=== PATIENT | male | born 1995 | race Caucasian/White ===

== ENCOUNTER 2020-03-19 18:45 | Emergency (ER) | payer OTHER, SELFPAY ==
[2020-03-08 08:10] VITALS: BMI 25.1
[2020-03-19] VITALS (10 sets, daily range): BP systolic 136–146; BP diastolic 97–101; PULSE 111–133; RESP 14–29; TEMP 36.4; O2SAT 92–94; BMI 23.3
--- NOTE | 2020-03-19 18:59 | ED.VIS.GEN ---
History of Present Illness Chief Complaint: Shortness of Breath Informant: Patient Narrative: 24-year-old male with a history of asthma states that since he woke up this morning has been feeling short of breath. He has been using his ProAir inhaler throughout the day. However over the past hour he is gotten significantly more short of breath. He states that it is very difficult for him to take a inhalation. He denies any fevers, rhinorrhea, diarrhea, rashes. Past Medical History - Allergies and Home Meds Allergies/Adverse Reactions: Allergies No Known Allergies Allergy (Verified 03/19/20 18:46) Primary Care Physician: Liliam Clements MD [Primary Care Provider] - 1 Week Past Medical History: - - Asthma Surgical History: noncontributory Smoking Status: Current every day smoker Drugs: None Review of Systems General: Denies: Chills, Fever, Sweats Eyes: Denies: Visual changes - bilaterally, Diplopia ENT: Denies: Rhinorrhea, Sore throat Cardiovascular: Denies: Chest pain, Palpitations Respiratory: Reports: Dyspnea, Dyspnea on exertion. Denies: Cough Gastrointestinal: Denies: Abdominal pain, Nausea, Vomiting, Diarrhea, Melena, Hematochezia Genitourinary: Denies: Dysuria, Hematuria, Frequency Musculoskeletal: Denies: Back pain, Extremity Pain Skin: Denies: Rash, Wounds Neurological: Denies: Headache, Weakness, Numbness Physical Exam Vital Signs/Narrative: Vital Signs Temp Pulse Resp BP Pulse Ox 03/19/20 18:46 97.5 F L 113 H 29 H 146/101 H 94 Inital Vital Signs reviewed: Yes General: Well nourished, Well developed, No Acute Distress Head: Normocephalic, Atraumatic Eyes: Perrl, EOMI ENT: Moist mucous membranes, No rhinorrhea Neck: Supple, Nontender Cardiovascular: Regular rate, No murmurs, Tachycardia Respiratory: Chest nontender, Wheezing - Inspiratory and expiratory, - - Conversational dyspnea unable to speak in full sentences Abdomen: Soft, Nontender, Nondistended, Normal bowel sounds Back: Nontender, Normal Inspection Extremities: Nontender, No edema Skin: Normal color, No rash Neurological: Alert, Oriented x3, Cranial nerves II-XII grossly intact, Normal Strength, Normal Sensation Psychological: Normal affect, Normal Mood Diagnostic/Tx/Re-eval Clinical Impression(s) from Imaging Studies Chest X-Ray 03/19/20 20:25 IMPRESSION: Normal x-ray examination of the chest. Electronically Signed: Jorge Pardo DO at 21:00 EST Tel [phone], Service support , - Medical Decision Making My interpretation of the two view portable chest radiograph was no acute process. Radiology agrees. Covid antigen testing was negative. Patient received a DuoNeb and 2 albuterol aerosols and prednisone 60 mg. Repeat lung auscultation shows no more inspiratory wheezing but he still does have some expiratory wheezing. He is moving better air. He however states he does not symptomatically feel better. Patient's pulse ox is 93 to 95% at rest. Ambulating he is 93%. I gave him a second DuoNeb. Peak flows were obtained. He was having difficulty getting the first couple seconds of his expiratory breath into the peak flow meter despite numerous efforts. At this point he is sitting up in the bed eating he appears significantly more comfortable. His lung sounds are greatly improved. On the right and for new albuterol MDI with a spacer and burst prednisone. Return if worsening or concerns ED Disposition - Plan for ED Patient: Disposition: Home or Assisted Living Diagnosis: Asthma exacerbation Instructions: ED Asthma, Acute (Adult) Prescriptions: Prednisone [Deltasone] 60 mg PO DAILY #15 tab Prescription Printed Albuterol Inhaler [Ventolin Hfa] 2 puff INHALATION Q2H PRN PRN #1 inhaler PRN Reason: Wheezing Prescription Printed Referrals: Liliam Clements MD [Primary Care Provider] - 1 Week
[2020-03-19] MEDS: Ipratropium/Albuterol Sulfate 3 ML AMPUL.NEB INHALATION ×2 (19:09→21:05)
[2020-03-19] MEDS: Albuterol 2.5 MG/3 ML VIAL.NEB. INHALATION ×3 (19:10→19:30)
[2020-03-19] MEDS: predniSONE 20 MG Tablet 60 MG PO (19:11)
--- NOTE | 2020-03-19 20:25 | RAD_ITS ---
STUDY: X-RAY CHEST REASON FOR EXAM: Male, 24 years old. Shortness of breath. Wheezing. Asthma. TECHNIQUE: Single AP portable view of the chest. COMPARISON: None. FINDINGS: The lungs are clear and expanded. There is no demonstrated pleural abnormality. Normal size heart. Normal mediastinum and art. Normal visualized pulmonary arteries. Normal visualized aortic arch and descending thoracic aorta. Normal visualized thoracic spine. Normal visualized ribs, clavicles, and shoulders. There is no demonstrated abnormality of the visualized soft tissue structures of the upper abdomen. RAD/Chest 1 View (Portable) IMPRESSION: Normal x-ray examination of the chest. Electronically Signed: Jorge Pardo DO at 21:00 EST Tel [phone], Service support ,
[2020-03-19] MEDS: INHALER, ASSIST DEVICES 1 EACH SPACER INHALATION (21:34)
== END 2020-03-19 21:41 | disposition home or self-care (01) ==
PROVIDERS: Emergency Provider Emergency Medicine; PCP Internal Medicine
DX: J45.901 Unspecified asthma with (acute) exacerbation (principal); F17.200 Nicotine dependence, unspecified, uncomplicated
CPT/HCPCS: 71045; 87426; 94640; 99251; 99284; A4216; G0463

== ENCOUNTER → 2022-05-09 | Outpatient (CLI) | payer OTHER, SELFPAY ==
[2022-05-09 10:50] LABS: Absolute Neutrophil Count 4.5 X10^3/uL (2.0-7.7); Basophil# 0.05 X10^3/uL; Basophil% 0.7 % (0-1); Eosinophil# 0.85 X10^3/uL; Eosinophils% 11.1 % (0-5); Hematocrit 37.6 % (40-54); Hemoglobin 11.9 g/dL (13.0-16.5); Mean Corp Hgb Conc 31.6 g/dL (32-36); Mean Corpuscular Hgb 26.1 pg (27.0-32.0); Mean Corpuscular Volume 82.5 fL (80-94); Mean Platelet Vol. 9.4 fl (6.2-12.0); Monocyte% 7.9 % (0-10); NRBC Flagged by Analyzer 0 % (0-5); Neutrophil # 4.51 X10^3/uL (2.7-7.7); Platelet Count 382 K/mm3 (150-450); RBC Distribution Width CV 13.6 % (11.6-14.6); RBC Distribution Width SD 40.3 fl (35.1-43.9); Red Blood Count 4.56 M/mm3 (4.6-6.2); White Blood Count 7.6 K/mm3 (4.4-11.0)
[2022-05-09 11:20] LABS: Vitamin D,25 Hydroxy 27.4 ng/mL
[2022-05-09 11:28] LABS: ALB/GLOB Ratio 1.2 RATIO (0.9-2.4); AST(SGOT) 31 U/L (15-37); Alanine Aminotransfer ALT/SGPT 37 U/L (16-61); Albumin, Serum 4.2 g/dL (3.2-5.0); Alkaline Phosphatase 87 U/L (45-117); Anion Gap 5 (5-15); BUN 12 mg/dL (7-18); BUN/Creat Ratio 13.5 RATIO (10-20); Calcium,Total 9.2 mg/dL (8.5-10.1); Chloride 106 mmol/L (98-107); Cholesterol 128 mg/dL (200); Creatinine, Serum 0.89 mg/dL (0.70-1.30); EST Glomerular Filtration Rate 108 mL/min (>60); Est Glom Filt Rate - Afr Amer 131 mL/min (>60); Globulin 3.5 g/dL (2.2-4.2); Glucose 97 mg/dL (74-106); High Density Lipoprotein 38 mg/dL; Potassium 3.8 mmol/L (3.5-5.1); Protein, Total 7.7 g/dL (6.4-8.2); Sodium Level 141 mmol/L (136-145); Triglycerides 53 mg/dL; Very Low Density Lipoprotein 11 mg/dL (5-40)
[2022-05-09 13:43] LABS: Iron 29 ug/dL (65-175); Iron Binding Capacity,Total 471 ug/dL (250-450); PERCENT IRON SATURATION 6.2 % (15.0-55.0)
[2022-05-09 14:28] LABS: Vitamin B12 801 pg/mL (211-911)
== END | disposition home or self-care (01) ==
LOC: LAB 09:51
PROVIDERS: PCP Internal Medicine
DX: Z00.00 Encounter for general adult medical examination without abnormal findings (principal); E55.9 Vitamin D deficiency, unspecified; N18.9 Chronic kidney disease, unspecified; D64.9 Anemia, unspecified; Z13.220 Encounter for screening for lipoid disorders
CPT/HCPCS: 36415; 80053; 80061; 82306; 82607; 82746; 83540; 83550; 85025

== ENCOUNTER → 2022-05-11 | Outpatient (CLI) | payer OTHER, SELFPAY ==
[2022-05-11 14:43] LABS: Bacteria 0 SEEN /hpf (None Seen); Mucous, Urine 0 SEEN /hpf (<or=2+); Red Blood Cells-Urine 0 SEEN /hpf (0-5); Squamous Epithelial Cells - UA 0 SEEN /hpf (0-5); White Blood Cells 0 SEEN /hpf (0-5)
[2022-05-11 14:52] LABS: Color, Urine Yellow (Yellow); Glucose, Dipstick Normal (Normal); Ketone-Dipstick 5 mg/dl (Negative); Leukocyte Esterase-Dipstick 25 /ul (Negative); Nitrite-Dipstick Negative (Negative); Occult Blood-Urine Negative /ul (Negative); Protein-Dipstick 30 mg/dl (Negative); Urine Bilirubin Dipstick Negative (Negative); Urine Clarity Clear (Clear); Urine Urobilinogen 1 mg/dl (Normal)
== END | disposition home or self-care (01) ==
LOC: LABSPEC 14:40
PROVIDERS: PCP Internal Medicine; Referring Provider Internal Medicine; Visit Provider Internal Medicine
DX: D64.9 Anemia, unspecified (principal)
CPT/HCPCS: 81001

== ENCOUNTER → 2022-05-14 | Outpatient (CLI) | payer OTHER, SELFPAY | END | disposition home or self-care (01) | LOC: LABSPEC 08:58 | PROVIDERS: PCP Internal Medicine; Referring Provider Internal Medicine; Visit Provider Internal Medicine | DX: D64.9 Anemia, unspecified (principal) | CPT/HCPCS: 82274 ==

== ENCOUNTER 2022-08-16 07:39 | Day surgery (SDC) | payer OTHER, SELFPAY ==
[2022-08-16] VITALS (7 sets, daily range): BP systolic 91–123; BP diastolic 56–85; PULSE 59–83; RESP 16–18; TEMP 36.3–36.6; O2SAT 97–100; BMI 23.9
--- NOTE | 2022-08-16 08:14 | HP.PCM_ITS ---
History and Physical Date of Admission: 08/16/22 Visit Reasons:?Anemia/C-Scope Consult Chief Complaint: anemia/c-scope consult Is patient in pain?: No Allergies No Known Allergies Allergy (Verified 06/03/22 08:47) Medications albuterol sulfate 90 mcg/actuation aerosol inhaler 2 puff inhalation Q2H PRN PRN Wheezing ##1 03/19/20 [Rx Confirmed 06/03/22] albuterol sulfate 90 mcg/actuation aerosol inhaler 2 puff inhalation Q6H PRN shortness of breath or wheezing #18 grams 05/09/22 [Rx Confirmed 06/03/22] fluticasone propionate 115 mcg-salmeterol 21 mcg/actuation HFA inhaler 2 puff inhalation BID #12 grams 05/09/22 [Rx Confirmed 06/03/22] ferrous sulfate 325 mg (65 mg iron) tablet 325 mg PO BID #60 tabs 05/14/22 [Rx Confirmed 06/03/22] PFSH Medical History? Asthma Surgical History? right finger surgery Family History? Grandfather Myocardial infarction ?? ? age 47 Social History? Smoking Status:? Current every day smoker Smokeless tobacco user:? chewing tobacco and other alcohol intake:? current substance use type:? does not use HPI HPI HPI: 26-year-old gentleman is being referred by Dr. Liliam Clements for surgical consultation regarding chronic anemia.? A written compromise surgical consult recommendations will return to him.? The patient was most recently seen on May 22, [address] Liliam Clements.? On reviewing the medications at that time it includes newly started iron sulfate.? The patient had a history of 2016 with an episode of severe colitis.? He is noted to have a mild anemia at that time.? By report stool Hemoccult at that time was negative x2.? The patient has not noted any bright red blood per rectum or melena. As of May 09, 2022 white blood cell count 7.6 with a hemoglobin 11.9 and hematocrit of 37.6 with a platelet count of 382,000.? MCV is normal at 82.5 with an MCH of 26.1 slightly low and MCHC 31.6 slightly low.? BUN is 12 and creatinine 0.89. Patient is a driver education instructor.? Typical day can be at least 9-1/2 hours.? His diet is variable.? He will have a good meal in the evening.? He states his weight with weights been stable.? He occasionally will have some constipation.? There is no family history of colon cancer he states both of his parents are very healthy.? States that his sister couple years ago however was diagnosed with what he thinks is ulcerative colitis.? He thinks he is she is on medication but she has not required any surgery. 5 years ago he had significant problems with reflux disease.? He was chewing tobacco at that time.? He has since given that up.? Although we still have heartburn and reflux symptoms he is no longer on omeprazole therapy. He has been recently placed on iron therapy as replacement. It is not clear whether this could be simply a nutritional issue not getting enough iron in combination with his vigorous physical and long hours at work. He is currently denying any abdominal pain. 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 This can sometimes cause discomfort throughout the day particularly during the morning hours. ROS General General: No weight change, appetite, fatigue, colon cancer, breast cancer or weakness HEENT HEENT: No difficulty swallowing, eye injury, eye surgery, swollen glands or hoarseness Endo Endocrine: No thyroid disease, diabetes mellitus, thyroid cancer, Hair loss, heat intolerance or cold intolerance Skin Skin: No rash or changing moles Musc Musculoskeletal: No back problems, arthritis, rheumatoid arthritis, gout or joint pain Cardio Cardiovascular: No murmur, pacemaker, heart disease, atrial fibrillation, high blood pressure, heart attack, heart stent, palpitations, shortness of breat with exertion or chest pain Psych Psychiatric: No depression, anxiety or hearing voices Resp Respiratory: No shortness of breath, No sleep apnea, No cough, No COPD, Yes asthma, No emphysema and No wheezing Gastro Gastrointestinal: No abdominal pain, No nausea or vomiting, Yes diarrhea, Yes constipation, Yes blood in stool, Yes acid reflux, No hemorrhoids, No ulcers, No gallbladder problem and No black,tarry stools Sam Hematologic: No blood thinners, No blood disorders, No bleeding, No anemia and No blood clots Neuro Neurologic: No system reviewed and no additional complaints, except as documented, No as per HPI, No abnormal gait, No abnormal hearing, No abnormal movements, No abnormal speech, No behavioral changes, No burning sensations, No confusion, No convulsions, No disequilibrium, No dizziness, No localized weakness, No frequent falls, No headache(s), No lack of coordination, No loss of vision, No memory loss, No numbness, No other visual disturbances, No radicular pain, No restless legs, No sensory deficit, No syncope, No tingling, No tremor(s), No weakness and No other Exam Const General: cooperative, healthy appearing, comfortable and no acute distress Nutritional Appearance: average body habitus Orientation: alert and awake [facility] Head: normal to inspection Eyes General: appearance normal, both eyes and all related structures Neck Neck: normal visual inspection Chest Chest palpation & inspection: normal inspection of the chest Resp Effort & Inspection: normal respiratory effort Auscultation: clear to auscultation bilaterally Cardio Rate: regular rate Rhythm: regular rhythm GI Inspection: normal to inspection Skin General: no rashes or lesions noted Neuro General: patient alert, patient awake and patient oriented x3 Cognition: normal cognition Extrem General: normal to inspection Psych Appearance: grossly normal Assessment and Plan Assessment and Plan (1) Anemia: ?Status:?Acute ?Plan: I recommended the patient a combined esophagogastroduodenoscopy with possible biopsy and colonoscopy with possible biopsy or polypectomy as indicated.? He is aware of the technique, benefit, risk, alternatives.? Inspected for potential source of blood loss.? I would do my best to try to inspect the terminal ileum as well.? The patient does have reflux symptoms and a history of the same.? He has a family history suggesting his sister with ulcerative colitis.? No family history that he is aware of of colon cancer.? No previous upper and lower endoscopy. He has had an opportunity ask and have questions answered.? He is not interested in missing any more work than he has to.? With that in mind we may provide a 1 day clear liquid and a GoLytely prep. I very much appreciate the kind option of assisting with the surgical care Copy: Dr. Liliam Muller M.D., F.A.C.S. No new changes since his previous office appointment. Arturo Muller M.D., F.A.C.S.
[2022-08-16] MEDS: Lactated Ringers 1,000 ML 15 ML IV (08:16)
--- NOTE | 2022-08-16 08:45 | EGD_PTH ---
PATIENT: RODO ALICEA LOC: EN U#:[id number] AGE/SX: 26/M ROOM: RE08/16/[address]: Dr. Arturo Muller MD : 1995 BED: DIS: 08/16/2022 SPEC #: [id number] RECD: 08/16/22 10:28 STATUS: JOS HERNANDEZVasquez #: [id number] JEWELS: 08/16/22 08:[address]: Arturo Muller DEPT: SURGICAL PATHOLOGY RECD BY: Leti Steward ENTERED: 08/16/22 11:24 SP TYPE: EGD BIOPSY OT DR: Dr. Liliam Clements MD Tissues: A - Duodenum, NOS B - Gastric mucous membrane C - Esophagus, NOS D - Esophagus, NOS E - Ileum, NOS F - COLON BIOPSY Procedures: Special Stain Group II Surgery Specimen Level IV Alcian Blue/PAS (control) HEADER OPERATION: Colonoscopy, EGD (MAC), biopsy PRE-OP DIAGNOSIS: Anemia TISSUE SUBMITTED: A ? Duodenum biopsy, B ? Gastric antrum biopsy, H. pylori and path, C ? Distal esophagus biopsy, D ? Mid esophagus biopsy, E ? Terminal ileum biopsy, F ? Random colon biopsy MICROSCOPIC DIAGNOSIS A. Duodenum, biopsy: Mild nonspecific chronic duodenitis. B. Gastric antrum, biopsy: Chronic gastritis. See comment. C. Distal esophagus, biopsy: Gastroesophageal junctional mucosa with mild chronic inflammation. Focal changes of reflux. No evidence of goblet cell metaplasia. See comment. D. Mid esophagus, biopsy: No pathologic change. E. Terminal ileum, biopsy: No pathologic change. F. Colon, random biopsy: Mild melanosis coli. AM:gustavo 08/19/2022 COMMENT B. The results of immunohistochemistry for Helicobacter pylori will be reported separately ([id number]). C. Alcian blue/PAS stain with matched control supports the above diagnosis. MICROSCOPIC DESCRIPTION Slides are reviewed. GROSS DESCRIPTION A - Received in fixative is one container labeled with the patient's name and designated biopsy duodenum. The specimen consists of one irregular fragment of light oliver soft tissue that measures 0.3 x 0.3 x 0.1 cm. The specimen is totally submitted in one cassette. B - Received in fixative is one container labeled with the patient's name and designated gastric antrum biopsy. The specimen consists of one irregular fragment of light oliver soft tissue that measures 0.3 x 0.3 x 0.1 cm. The specimen is totally submitted in one cassette. C - Received in fixative is one container labeled with the patient's name and designated distal esophagus biopsy. The specimen consists of multiple irregular fragments of light oliver soft tissue that in aggregate measure 0.8 x 0.5 x 0.1 cm. The specimen is totally submitted in one cassette. D - Received in fixative is one container labeled with the patient's name and designated biopsy mid esophagus. The specimen consists of two irregular fragments of light oliver soft tissue that in aggregate measure 0.6 x 0.3 x 0.1 cm. The specimen is totally submitted in one cassette. E - Received in fixative is one container labeled with the patient's name and designated biopsy terminal ileum. The specimen consists of two irregular fragments of light oliver soft tissue that in aggregate measure 0.8 x 0.4 x 0.1 cm. The specimen is totally submitted in one cassette. F - Received in fixative is one container labeled with the patient's name and designated random colon biopsy. The specimen consists of multiple irregular fragments of light oliver soft tissue that in aggregate measure 1.2 x 0.5 x 0.1 cm. The specimen is totally submitted in one cassette. / SJ:rg 08/16/2022 TC:3 CPT: 70696 x6, 86805
--- NOTE | 2022-08-16 08:45 | IMM_PTH ---
PATIENT: RODO ALICEA LOC: EN U#:[id number] AGE/SX: 26/M ROOM: RE08/16/[address]: Dr. Arturo Muller MD : 1995 BED: DIS: 08/16/2022 SPEC #: [id number] RECD: 08/16/22 13:05 STATUS: JOS REVasquez #: [id number] JEWELS: 08/16/22 08:[address]: Arturo Muller DEPT: IMMUNOHISTOCHEMISTRY RECD BY: Mary Rivera ENTERED: 08/16/22 13:06 SP TYPE: IMMUNO OTHR DR: Dr. Liliam Clements MD Tissues: B - Stomach, NOS Procedures: H Pylori (initial) PHYSICIAN & INSTITUTION [place] [id number] SPECIMEN INFORMATION: Tissue Source: B ? Gastric antrum Clinical Info: Anemia Specimen Number: [id number] CPT code: 27469 METHODOLOGY: Deparaffinized sections of prefer/formalin-fixed tissue or PAP/DQ stained slides are incubated with monoclonal/polyclonal antibodies/oligonucleotide probes. Localization is made via biotin free immunoperoxidase method. Appropriate controls are performed and reacted as expected. Results on target cell population are indicated in the following table: RESULTS: ANTIBODY / CLONE RESULT Block B H Pylori (polyclonal) negative These tests were developed and their performance characteristics determined by [facility]. They may not have been cleared or approved by the U.S. Food and Drug Administration. The FDA has determined that such clearance or approval is not necessary. The above immunohistochemical/dualISH markers are ordered and reviewed by the Pathologist. INTERPRETATION: B. Gastric antrum, biopsy: Negative for Helicobacter pylori organisms. AM:gustavo 08/19/2022
--- NOTE | 2022-08-16 09:37 | OP.EGD_ITS ---
Patient Name: Chito Louis Procedure Date: 08/16/2022 8:54 AM Date of : 1995 Age: 26 Procedure: Upper GI endoscopy Indications: Suspected esophageal reflux Providers: Arturo Muller MD Referring MD: Arturo Muller MD Medicines: See the Anesthesia note for documentation of the administered medications Complications: No immediate complications. Procedure: Pre-Anesthesia Assessment: - Prior to the procedure, a History and Physical was performed, and patient medications and allergies were reviewed. The patient's tolerance of previous anesthesia was also reviewed. The risks and benefits of the procedure and the sedation options and risks were discussed with the patient. All questions were answered, and informed consent was obtained. Prior Anticoagulants: The patient has taken no previous anticoagulant or antiplatelet agents. ASA Grade Assessment: II - A patient with mild systemic disease. After reviewing the risks and benefits, the patient was deemed in satisfactory condition to undergo the procedure. After obtaining informed consent, the endoscope was passed under direct vision. Throughout the procedure, the patient's blood pressure, pulse, and oxygen saturations were monitored continuously. The pediatric colonoscope was introduced through the mouth, and advanced to the second part of duodenum. The upper GI endoscopy was accomplished without difficulty. The patient tolerated the procedure well. Scope In: 9:01:37 AM Scope Out: 9:11:00 AM Total Procedure Duration Time 0 hours 9 minutes 23 seconds Findings: Esophagitis with no bleeding was found 45 cm from the incisors. Biopsies were taken with a cold forceps for histology. The mid esophagus was normal. Biopsies were taken with a cold forceps for histology. Diffuse mildly erythematous mucosa without bleeding was found in the gastric antrum. Biopsies were taken with a cold forceps for histology. Diffuse mildly erythematous mucosa without active bleeding and with no stigmata of bleeding was found in the duodenal bulb. Biopsies were taken with a cold forceps for histology. Impression: - Reflux esophagitis. Very mild changes. Biopsied. - Normal mid esophagus. Biopsied. - Erythematous mucosa in the antrum, very minimal. Biopsied. - Erythematous duodenopathy. Biopsied. Recommendation: - Discharge patient to home. - Resume previous diet. - Continue present medications. - Telephone my office for pathology results in 1 week. Procedure Code(s): --- Professional --- 73736, Esophagogastroduodenoscopy, flexible, transoral; with biopsy, single or multiple Diagnosis Code(s): --- Professional --- K21.0, Gastro-esophageal reflux disease with esophagitis K31.89, Other diseases of stomach and duodenum CPT copyright 2017 [employer]. All rights reserved. The codes documented in this report are preliminary and upon proof sorter review may be revised to meet current compliance requirements. Arturo Muller MD 08/16/2022 9:37:10 AM This report has been signed electronically. Number of Addenda: 0 Note Initiated On: 08/16/2022 8:54 AM
--- NOTE | 2022-08-16 09:38 | OP.CCLET_ITS ---
08/16/2022 Liliam Clements [facility] [address] [place] [address] Re : Upper GI endoscopy procedure for Chito Louis Dear Dr. Clements This procedure was performed on Tuesday, August 16, 2022. My impressions and recommendations are as follows: Impressions : - Reflux esophagitis. Very mild changes. Biopsied. - Normal mid esophagus. Biopsied. - Erythematous mucosa in the antrum, very minimal. Biopsied. - Erythematous duodenopathy. Biopsied. Recommendations : - Discharge patient to home. - Resume previous diet. - Continue present medications. - Telephone my office for pathology results in 1 week. My findings are described in the full procedure note, which is enclosed. If I can be of further assistance, please feel free to contact me at Doctor phone number(s): Work: . Sincerely, Arturo Muller MD 08/16/2022 9:37:10 AM This report has been signed electronically.
--- NOTE | 2022-08-16 09:42 | OP.COLON_ITS ---
Patient Name: Chito Louis Procedure Date: 08/16/2022 9:11 AM Date of : 1995 Age: 26 Procedure: Colonoscopy Indications: Iron deficiency anemia Providers: Arturo Muller MD Referring MD: Arturo Muller MD Medicines: See the Anesthesia note for documentation of the administered medications Patient Profile: Last Colonoscopy: none. The patient's first colonoscopy is today. Complications: No immediate complications. Procedure: Pre-Anesthesia Assessment: - Prior to the procedure, a History and Physical was performed, and patient medications and allergies were reviewed. The patient's tolerance of previous anesthesia was also reviewed. The risks and benefits of the procedure and the sedation options and risks were discussed with the patient. All questions were answered, and informed consent was obtained. Prior Anticoagulants: The patient has taken no previous anticoagulant or antiplatelet agents. ASA Grade Assessment: II - A patient with mild systemic disease. After reviewing the risks and benefits, the patient was deemed in satisfactory condition to undergo the procedure. After I obtained informed consent, the scope was passed under direct vision. Throughout the procedure, the patient's blood pressure, pulse, and oxygen saturations were monitored continuously. The pediatric colonoscope was introduced through the anus and advanced to the terminal ileum. The colonoscopy was performed without difficulty. The patient tolerated the procedure well. The quality of the bowel preparation was good. The terminal ileum and the ileocecal valve were photographed. Scope In: 9:12:33 AM Scope Withdrawal Time 0 hours 9 minutes 56 seconds Scope Out: 9:31:40 AM Total Procedure Duration Time 0 hours 19 minutes 7 seconds Findings: The perianal and digital rectal examinations were normal. The colon (entire examined portion) appeared normal. Biopsies for histology were taken with a cold forceps from the entire colon for evaluation of microscopic colitis. The terminal ileum appeared normal. Biopsies were taken with a cold forceps for histology. Impression: - The entire examined colon is normal. Biopsied. - The examined portion of the ileum was normal. Biopsied. Recommendation: - Discharge patient to home. - Resume previous diet. - Continue present medications. - Repeat colonoscopy age 48 for screening purposes. - Telephone my office for pathology results in 1 week. Procedure Code(s): --- Professional --- 57780, Colonoscopy, flexible; with biopsy, single or multiple Diagnosis Code(s): --- Professional --- D50.9, Iron deficiency anemia, unspecified CPT copyright 2017 [employer]. All rights reserved. The codes documented in this report are preliminary and upon singer back tender review may be revised to meet current compliance requirements. Atruro Mulelr MD 08/16/2022 9:42:29 AM This report has been signed electronically. Number of Addenda: 0 Note Initiated On: 08/16/2022 9:11 AM
--- NOTE | 2022-08-16 09:44 | OP.CCLET_ITS ---
08/16/2022 Liliam Clements [facility] [address] [place] [address] Re : Colonoscopy procedure for Chito Louis Dear Dr. Clements This procedure was performed on Tuesday, August 16, 2022. My impressions and recommendations are as follows: Impressions : - The entire examined colon is normal. Biopsied. - The examined portion of the ileum was normal. Biopsied. Recommendations : - Discharge patient to home. - Resume previous diet. - Continue present medications. - Repeat colonoscopy age 48 for screening purposes. - Telephone my office for pathology results in 1 week. My findings are described in the full procedure note, which is enclosed. If I can be of further assistance, please feel free to contact me at Doctor phone number(s): Work: . Sincerely, Arturo Muller MD 08/16/2022 9:42:29 AM This report has been signed electronically.
== END 2022-08-16 10:36 | disposition home or self-care (01) ==
LOC: EN 07:43 → AC 07:43
PROVIDERS: PCP Internal Medicine; Referring Provider Internal Medicine; Visit Provider Surgery
PROC: 0DJD8ZZ Inspection of Lower Intestinal Tract, Via Natural or Artificial Opening Endoscopic (ICD-10-PCS; CPT 45378; principal; 2022-08-16 08:40)
DX: K21.00 Gastro-esophageal reflux disease with esophagitis, without bleeding (principal); F17.200 Nicotine dependence, unspecified, uncomplicated; D50.9 Iron deficiency anemia, unspecified; K31.89 Other diseases of stomach and duodenum
CPT/HCPCS: 45380; 43239; 88305; 88313; 88342; J7120; J2405

== ENCOUNTER 2023-11-18 11:32 | Emergency (ER) | payer OTHER, SELFPAY ==
[2023-11-18 11:33] VITALS: BP 140/88; PULSE 104; RESP 16; TEMP 36.5; O2SAT 100; BMI 24.3
[2023-11-18 12:47] LABS: Erythrocyte Sedimentation Rate 10 mm/hr (0-20)
--- NOTE | 2023-11-18 12:50 | RAD_ITS ---
INDICATION: swelling EXAMINATION/TECHNIQUE: X-RAY - LEFT XR Knee Complete 4 Views or More 4 VIEWS COMPARISON: No relevant prior comparison study available FINDINGS: SOFT TISSUES: Prepatellar soft tissue swelling. No radiopaque foreign body. BONES/JOINTS: No acute fracture or subluxation.. Normal alignment. The joint spaces are within normal limits. No evidence of joint effusion. No sclerotic or destructive changes observed. RAD/Knee 4 or More Views IMPRESSION: Prepatellar soft tissue swelling. No evidence of acute osseous changes. Electronically Signed: Mateo Beasley MD at 13:10 EDT ,
[2023-11-18 12:51] LABS: Absolute Lymphocyte Count 1.55 X10^3/uL (0.83-4.51); Absolute Neutrophil Count 5.6 X10^3/uL (2.0-7.7); Basophil# 0.04 X10^3/uL; Basophil% 0.5 % (0-1); Eosinophil# 0.16 X10^3/uL; Eosinophils% 1.9 % (0-5); Hemoglobin 11.8 g/dL (13.0-16.5); Lymphocyte # 1.55 X10^3/ul (0.83-4.51); Lymphocyte % 18.9 % (19-41); Mean Corp Hgb Conc 32.8 g/dL (32-36); Mean Corpuscular Hgb 26.8 pg (27.0-32.0); Mean Corpuscular Volume 81.8 fL (80-94); Mean Platelet Vol. 9.6 fl (6.2-12.0); Monocyte# 0.78 X10^3/uL; Monocyte% 9.5 % (0-10); NRBC Flagged by Analyzer 0 % (0-5); Neutrophil # 5.63 X10^3/uL (2.7-7.7); Neutrophil % 68.6 % (47-70); Platelet Count 350 K/mm3 (150-450); RBC Distribution Width CV 13.5 % (11.6-14.6); White Blood Count 8.2 K/mm3 (4.4-11.0)
[2023-11-18 12:59] LABS: Anion Gap 5 (5-15); BUN 12 mg/dL (7-18); BUN/Creat Ratio 12.7 RATIO (10-20); Calcium,Total 8.8 mg/dL (8.5-10.1); Chloride 104 mmol/L (98-107); Creatinine, Serum 0.94 mg/dL (0.70-1.30); EST Glomerular Filtration Rate 100 mL/min (>60); Est Glom Filt Rate - Afr Amer 121 mL/min (>60); Glucose 118 mg/dL (74-106); Potassium 3.5 mmol/L (3.5-5.1); Sodium Level 137 mmol/L (136-145)
[2023-11-18 13:34] VITALS: BP 129/88; PULSE 79; RESP 16; TEMP 36.7; O2SAT 97
[2023-11-18] MEDS: Amox/Clavulanate 875 MG Tablet PO (14:13)
[2023-11-18] MEDS: Ibuprofen 600 MG Tablet PO (14:13)
[2023-11-18 14:35] VITALS: BP 133/87; PULSE 88; RESP 19; TEMP 36.7; O2SAT 98
--- NOTE | 2023-11-18 15:30 | EDS_ITS ---
HPI History of Present Illness Chief Complaint: Edema Informant: patient Narrative Narrative: Patient presenting here with his boss he works at [employer] for reported nontraumatic left knee pain and swelling since yesterday. No fevers or chills. He states mild suprapatellar increase overnight. There is redness and warmth. He denies any alcohol history. 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 He states he was not on his knees with no abrasions. No history of similar. Prior similar symptoms: No PFSH PFSH Medical History Alcohol use Anemia Injury of back Gastric reflux Chewing tobacco nicotine dependence in remission History of deviated nasal septum Asthma Home Medications ?Medication ?Instructions ?Recorded ?Last Taken ?Type albuterol sulfate 90 mcg/actuation 2 puff inhalation Q2H PRN PRN 03/19/20 Unknown Rx aerosol inhaler Wheezing ##1 fluticasone propionate 115 2 puff inhalation BID #12 grams 05/09/22 Unknown Rx mcg-salmeterol 21 mcg/actuation HFA inhaler ferrous sulfate 325 mg (65 mg 325 mg PO BID #60 tabs 05/14/22 Unknown Rx iron) tablet peg 3350-electrolytes 236 4,000 ml PO ONCE #4,000 mL 06/03/22 Unknown Rx gram-22.74 gram-6.74 gram-5.86 gram solution omeprazole 40 mg capsule,delayed See Rx Instructions .Route 11/22/22 Unknown Rx release .COMPLEX #90 caps albuterol sulfate 90 mcg/actuation 2 puff inhalation Q6H PRN 11/11/23 Unknown Rx aerosol inhaler shortness of breath or wheezing #18 grams amoxicillin 875 mg-potassium 875 mg PO Q12H #20 TABLETS 11/18/23 Unknown Rx clavulanate 125 mg tablet ibuprofen 600 mg tablet 600 mg PO Q6H PRN PRN pain #20 11/18/23 Unknown Rx TABLETS Allergy/AdvReac Type Severity Reaction Status Date / Time No Known Allergies Allergy Verified 11/18/23 11:33 Family History Grandfather Myocardial infarction age 47 Surgical History Hx of adenoidectomy right finger surgery Social History Smoking Status: Former smoker Smokeless tobacco user: chewing tobacco and other alcohol intake: current substance use type: does not use ROS ROS ED Constitutional Constitutional ED: Denies chills, fever(s) or sweats Eyes Eyes: Denies change in vision ENT ENT ED: Denies dysphagia or sore throat Cardiovascular Cardiovascular: Denies chest pain, leg edema, palpitations or racing heartbeat Respiratory/Chest Respiratory/Chest: Denies cough, dyspnea or dyspnea on exertion Gastrointestinal Gastrointestinal: Denies abdominal pain, diarrhea, nausea or vomiting Genitourinary Genitourinary ED: Denies dysuria, hematuria or urinary frequency Musculoskeletal Musculoskeletal: Reports extremity pain; Denies back pain or neck pain Integumentary Denies rash or wounds Neurologic Neurologic: Denies headache(s), paresthesias or weakness EXAM Physical Exam Const Vital Signs: 11/18/23 11:33 11/18/23 13:34 11/18/23 14:35 Temperature 97.7 F L 98.1 F 98.1 F Temperature Source Temporal Oral Pulse Rate 104 H 79 88 Respiratory Rate 16 16 19 H Blood Pressure 140/88 H 129/88 H 133/87 H Blood Pressure Mean 105 101 102 Pulse Ox 100 97 98 Oxygen Delivery Method Room Air Room Air Positive well nourished and well developed General Appearance ED: well developed and NAD HEENT Reports moist mucous membranes normocephalic and atraumatic Eyes EOMs intact bilaterally and conjunctivae normal General Eye ED: Yes normal appearance of both eyes Neck no lymphadenopathy and supple General: Negative for tenderness Chest Wall Chest: Negative for tenderness Resp normal respiratory effort and normal air movement Effort and Inspection: symmetric chest movement; Negative for respiratory distress Cardio regular rate, regular rhythm and no murmurs Peripheral Pulses: pulses 2+ throughout GI normal to inspection, nondistended, normoactive bowel sounds and non-tender Palpation: Negative for guarding or rebound tenderness present Back/Spine no CVA tenderness and no thoracic nor lumbar tenderness Extremity Extremity Narrative: Left lower extremity: Suprapatellar swelling there was some redness over patellar laterally that extended infrapatellar. No pain with short arc motion. Skin is intact there is no abrasions or wounds. General Extremety ED: Yes edema and tenderness General Extremity: edema Neuro oriented x3 and no sensory deficits noted Sensorium / Orientation: awake and alert Skin no rashes or lesions noted and no wounds MDM MDM MDM Narrative Medical decision making narrative: Interventions / MDM: Differential diagnosis: Prepatellar bursitis, cellulitis Diagnosis considered but do not suspect: Septic joint however aspiration attempt had no fluid. My EKG interpretation: N/A Imaging independently reviewed and interpreted by myself: 4 view x-ray left knee: Soft tissue swelling noted. There is no joint effusion also read by radiology. External documents reviewed: N/A Test considered but not ordered:N/A ED course: Patient nontraumatic knee swelling with warmth suprapatellar swelling. Discussed with patient during prepatellar bursitis however septic joint was in the differential. Discussed aspiration of the joint to help with diagnosis. He agrees. Labs were drawn including inflammatory markers. X-ray left knee ordered. X-ray left knee soft tissue swelling there is no joint effusion noted. Labs w [place] count of 8.2. CRP 11.3. ESR 10. Procedure note: Written consent obtained. Risks and benefits discussed. Performed sterile conditions. Betadine prepped of the skin medial aspect the knee away from any erythema region. Knee was placed in a 30 agree flexed position. Sterile gloves used, 18-gauge needle approach from the medial aspect. The 1.5 inch needle was hubbed and there was no fluid return. Needle was guided different directions with no fluid. Needle was removed, bandage was placed. Patient tolerated procedure well. With dry tap, discussed less likely concerns for septic joint in the knee. He is covered with Augmentin started on ibuprofen Phuc wrap and crutches. Initial plan was discussed with on-call orthopedist, Dr. Lutz, no recent surgery. While waiting, I discussed concerns with the patient. He elects to be discharged and follow-up as an outpatient. Antibiotics NSAID sent to his pharmacy. 1535: callback from Dr. Lutz, discussed patient's findings and workup in the ED. I sent imagings to Dr. Lutz and stated he was given information for outpatient follow-up and strict return precautions. Re-evaluation: stable Disposition discussed with patient/family/significant other: Patient Case discussed with consulting clinician: Orthopedist This note was generated with [employer] software. It may contain incorrect words, spelling, and punctuation that were not noted in checking the note before signing. Lab Data Attestation: I reviewed the patient's lab results. Labs: Laboratory Results - last 24 hr 11/18/23 12:00 WBC 8.2 RBC 4.40 L Hgb 11.8 L Hct 36.0 L MCV 81.8 MCH 26.8 L MCHC 32.8 RDW Std Deviation 40.0 RDW Coeff of Zuly 13.5 Plt Count 350 MPV 9.6 Immature Gran % (Auto) 0.600 Neut % (Auto) 68.6 Lymph % (Auto) 18.9 L [place] % (Auto) 9.5 Eos % (Auto) 1.9 Baso % (Auto) 0.5 Absolute Neuts (auto) 5.6 Absolute Lymphs (auto) 1.55 Nucleated RBC % 0 ESR 10 Sodium 137 Potassium 3.5 Chloride 104 Carbon Dioxide 28.0 Anion Gap 5 BUN 12 Creatinine 0.94 Estim Creat Clear Calc 133.60 Est GFR (MDRD) Af Amer 121 Est GFR (MDRD) Non-Af 100 BUN/Creatinine Ratio 12.7 Glucose 118 H Calcium 8.8 C-React Prot Ext Range 11.30 H Radiography Diagnostic Testing: Clinical Impression(s) from Imaging Studies Knee X-Ray 11/18/23 12:50 IMPRESSION: Prepatellar soft tissue swelling. No evidence of acute osseous changes. Electronically Signed: Mateo Beasley MD at 13:10 EDT Reading Location ID and State: [facility] / [place] Tel , Service support , Discharge Plan Triage Chief Complaint: Edema ED Provider: Brayan Mejia Dx/Rx/DC Orders Clinical Impression: Pain and swelling of left knee, Bursitis, prepatellar, left Instructions: Understanding Prepatellar Bursitis Prescriptions: New ibuprofen 600 mg tablet 600 mg PO Q6H PRN PRN (Reason: pain) Qty: 20 0RF amoxicillin-pot clavulanate 875-125 mg tablet 875 mg PO Q12H Qty: 20 0RF No Action fluticasone propion-salmeterol 115-21 mcg/actuation HFA aerosol inhaler 2 puff INHALATION BID Qty: 12 5RF peg 3350-electrolytes 236-22.74-6.74 -5.86 gram recon soln 4,000 ml PO ONCE Qty: 4000 0RF Rx Instructions: until fecal effluent is clear; do not exceed a total volume of 4000 mL albuterol sulfate 1 INHALER inhaler 2 puff INHALATION Q2H PRN PRN (Reason: Wheezing) Qty: 1 0RF ferrous sulfate 325 mg (65 mg iron) tablet 325 mg PO BID Qty: 60 2RF omeprazole 40 mg capsule,delayed release(DR/EC) See Rx Instructions .ROUTE .COMPLEX Qty: 90 0RF Dose Instruction: TAKE 1 CAPSULE BY MOUTH DAILY Rx Instructions: TAKE 1 CAPSULE BY MOUTH DAILY albuterol sulfate 90 mcg/actuation HFA aerosol inhaler 2 puff INHALATION Q6H PRN (Reason: shortness of breath or wheezing) Qty: 18 5RF Primary Care Provider: Liliam Clements Referrals: Giovanni Lutz DO [Med Staff - Active Staff] - 1 Week if not improving Liliam Clements MD [Primary Care Provider] - Activity Restrictions/Additional Instructions: Attempted knee aspiration with no fluid. Take and finish antibiotic prescribed. Ibuprofen as needed. Crutches and Phuc wrap for support. Print Language: Hebrew Disposition Disposition: Home, Self Care Discharge Date/Time: 11/18/23 14:43
== END 2023-11-18 14:43 | disposition home or self-care (01) ==
PROVIDERS: Emergency Provider Emergency Medicine; PCP Internal Medicine; Visit Provider Emergency Medicine
DX: M25.562 Pain in left knee (principal); M70.52 Other bursitis of knee, left knee; R60.9 Edema, unspecified; J45.909 Unspecified asthma, uncomplicated; Z87.891 Personal history of nicotine dependence
CPT/HCPCS: 73564; 80048; 85025; 85652; 86140; 99283; A4216

== ENCOUNTER → 2023-11-20 | Outpatient (CLI) | payer OTHER, SELFPAY ==
[2023-11-20 14:43] LABS: CRYSTALS, BODY FLUID NO CRYSTALS SEEN
[2023-11-20 14:53] LABS: Source- Body Fluid SYNOVIAL
[2023-11-20 14:54] LABS: Body Fluid QC Type(s) BF1Q
[2023-11-21 13:56] LABS: Pathologist Review Reviewed
== END | disposition home or self-care (01) ==
LOC: LABSPEC 12:58
PROVIDERS: PCP Internal Medicine; Referring Provider Orthopaedic Surgery; Visit Provider Orthopaedic Surgery
DX: M70.42 Prepatellar bursitis, left knee (principal)
CPT/HCPCS: 87070; 87075; 87205; 89060